=== PATIENT | female | born 1980 | race Caucasian/White ===

== ENCOUNTER → 2017-01-19 | Outpatient (CLI) | payer BC ==
--- NOTE | 2017-01-19 13:18 | RAD ---
Left wrist, 3 views, 01/19/2017: History: Wrist pain, basketball injury No fracture or dislocation is identified. On one view there is mild widening of the scapholunate distance raises the possibility of ligamentous injury at that level. IMPRESSION: 1. No acute bony abnormality is detected. 2. Slight widening of the scapholunate distance.
== END | disposition home or self-care (01) ==
LOC: DXRADRC 09:04
PROVIDERS: ATTEND Nurse Practitioner Family
DX: M25.532 Pain in left wrist (principal)
CPT/HCPCS: 73110